=== PATIENT | male | born 1985 | race Caucasian/White ===

== ENCOUNTER 2018-10-11 12:10 | Emergency (ER) | payer SELFPAY ==
[~2018-10-11] VITALS: Ht 193 cm; Wt 106.8 kg
[2018-10-11 12:13] VITALS: BP 105/67; Ht 193 cm; Wt 106.8 kg
== END 2018-10-11 13:15 | disposition left against medical advice (07) ==
LOC: D.ER 12:10
DX: M54.9 Dorsalgia, unspecified (principal)